=== PATIENT | male | born 1975 | race Caucasian/White ===

== ENCOUNTER 2019-10-26 19:05 | Emergency (ER) | payer BC, OTHER ==
[2019-10-26] MEDS ORDERED: Acetaminophen TAB* 325 MG PO ONE (20:21)
[2019-10-26 20:25] VITALS: BP 136/60
[2019-10-26 20:27] LABS: Influenza A Molecular POSITIVE (Negative)
--- NOTE | 2019-10-26 20:29 | UC ---
FLU HPI - HPI Summary HPI Summary: Patient presents to urgent care reporting 4 days of progressive body aches, congestion, nausea and vomiting, shortness of breath. Patient states he's been trying to drink fluids but decreased urine output due to dehydration. Patient has been taking [id number] Motrin and Tylenol. Last dose of Tylenol was this morning at noon. Patient states he just hurts and feels "terrible " last time he was here knee injury skiing tonight he has a shoulder sling patient took 3 days worth of Bactrim that he had left over. Patient does have a history of sepsis related to an infection in his knee. Patient does not have any red areas or concerning areas on his body he reports night. Patient's medications are sunken and the EMR record reviewed this visit patient's was diagnosed with influenza today. - History of Current Complaint Chief Complaint: UCGeneralIllness Stated Complaint: FLU LIKE SYMPTOMS Time Seen by Provider: 10/26/19 20:23 Hx Obtained From: Patient Severity Currently: Moderate Severity Initially: Severe Pain Intensity: 10 Pain Scale Used: 0-10 Numeric - Allergy/Home Medications Allergies/Adverse Reactions: Allergies Allergy/AdvReac Type Severity Reaction Status Date / Time Penicillins Allergy Anaphylatic Verified 10/26/19 20:49 Shock beesting Allergy Anaphylatic Uncoded 10/26/19 20:49 Shock Home Medications: Home Medications Ibuprofen TAB* [Advil TAB*] 800 mg PO Q6H PRN 07/16/17 [History Confirmed ] Acetaminophen [Tylenol Extra Strength] 1,000 mg PO Q6H 10/26/19 [History Confirmed 10/26/19] Sulfamethox/Trimethoprim DS* [Bactrim DS 800/160 TAB*] 1 tab PO BID 10/26/19 [ History Confirmed 10/26/19] PMH/Surg Hx/FS Hx/Imm Hx Previously Healthy: Yes - Surgical History Surgical History: None - Family History Known Family History: Positive: Non-Contributory Negative: Other - NO JOINT LAXITY - Social History Occupation: Employed Full-time Lives: With Family Alcohol Use: None Substance Use Type: None Smoking Status (MU): Never Smoked Tobacco - Immunization History Most Recent Influenza Vaccination: no Review of Systems All Other Systems Reviewed And Are Negative: Yes Constitutional: Positive: Fever, Chills, Fatigue Skin: Positive: Negative ENT: Positive: Sore Throat, Nasal Discharge, Sinus Congestion Respiratory: Positive: Shortness Of Breath, Cough Cardiovascular: Positive: Negative Gastrointestinal: Positive: Abdominal Pain, Vomiting, Nausea Genitourinary: Positive: Negative Physical Exam - Summary Physical Exam Summary: Vital Signs Reviewed: Yes A+Ox3, ill appearing Eyes: Conjunctiva Clear, SHIV. EOM intact and full ENT: Hearing grossly normal TM x 2 clear, turbinates inflammed and boggy, + PND , mmoist, uvula midline, no exudate, + diffuse erythema Neck: Positive: Supple Respiratory: Positive: No respiratory distress, No accessory muscle use + coarse cough + wheeze increased RR Cardiovascular: RRR +tachycardia, nl s1, s2 no m/r CBT <2 sec abd soft + BS + + RUQ TTP, no guarding, no rebound, no CVA Musculoskeletal Exam: KAY x 4 without difficulty Strength Intact, ROM Intact Neurological: Positive: Alert, + sensation throughout Psychological: Positive: Normal Response To examiner Skin: Positive: no rash, no ecchymosis, pallor Triage Information Reviewed: Yes Vital Signs: Initial Vital Signs Temp 103.5 F 10/26/19 20:21 Pulse 102 10/26/19 20:21 Resp 16 10/26/19 20:21 BP 136/60 10/26/19 20:21 Pulse Ox 91 10/26/19 20:21 Re-Evaluation - Re-Evaluation Second Eval Comment: Patient's color improved. Patient's S 92% following Xopenex. Patient' s urine shows 4+ ketones as well as some trace bilirubin. Chest x-ray bilateral infiltrates. Strong recommend patient with numerous primary for further evaluation treatment. Patient's who was present will drive him here. Spoke to Marlee Olson, nurse practictioner in the emergency department [facility] as were patient is coming for additional treatment. Flu Course/Dx - Course Course Of Treatment: Patient presents to urgent care was 3-4 days of progressive body aches, fatigue , fevers, cough, shortness of breath, abdominal pain, nausea. Patient states she's had decreased appetite little intake. Last antipyretic was at noon. On exam vital show an elevated blood pressure decreased oxygen saturations elevated heart rate. Patient's blood pressure is within normal limits patient patient is ill-appearing pale in color with increased respiratory rate. Patient also diffusely of tenderness to his abdomen. Patient informs was positive. We'll do a chest x-ray give Motrin and Tylenol as well as check a urine. We'll have [facility] is not significant improvement. - Differential Dx/Diagnosis Provider Diagnosis: Influenza, Hypoxia, Lung infiltrate Discharge ED - Sign-Out/Discharge Documenting (check all that apply): Patient Departure All imaging exams completed and their final reports reviewed: No - Discharge Plan Condition: Stable Disposition: HOME-RECOMMEND TO ED Patient Education Materials: Influenza (ED) Referrals: No Primary Care Phys,NOPCP [Primary Care Provider] - Additional Instructions: The doctor that evaluated you today thinks that you need additional testing that can be completed the emergency department. It is recommended that you go directly to emergency department for further evaluation. This evaluation may include blood work or imaging. This testing will be directed and decided by the provider that evaluate you at the emergency department. If pain becomes worse, you feel lightheaded, you have uncontrolled vomiting, or you have any other concerns while you are being driven to emergency department as recommended to pullover and contact 911. - Billing Disposition and Condition Condition: STABLE Disposition: Home-Recommend to ED
[2019-10-26] MEDS ORDERED: Ibuprofen TAB* 600 MG PO ONE (20:36)
[2019-10-26] MEDS ORDERED: Levalbuterol 1.25MG/0.5ML NEB INH ONE (20:37)
[2019-10-26] MEDS ORDERED: Levalbuterol 0.63MG/3ML NEB* UNIT OF USE INH ONE (20:49)
--- NOTE | 2019-10-27 08:02 | UC ---
- Progress Note Progress Note: Reviewe Dr. Pierre's reading of chest xray: bilateral infiltrates. He was sent to the ER for evaluation. Course/Dx - Diagnoses Provider Diagnoses: Influenza, Hypoxia, Lung infiltrate Discharge ED - Sign-Out/Discharge Documenting (check all that apply): Post-Discharge Follow Up All imaging exams completed and their final reports reviewed: Yes - Discharge Plan Condition: Stable Disposition: HOME-RECOMMEND TO ED Patient Education Materials: Influenza (ED) Referrals: No Primary Care Phys,NOPCP [Primary Care Provider] - Additional Instructions: The doctor that evaluated you today thinks that you need additional testing that can be completed the emergency department. It is recommended that you go directly to emergency department for further evaluation. This evaluation may include blood work or imaging. This testing will be directed and decided by the provider that evaluate you at the emergency department. If pain becomes worse, you feel lightheaded, you have uncontrolled vomiting, or you have any other concerns while you are being driven to emergency department as recommended to pullover and contact 911. - Billing Disposition and Condition Condition: STABLE Disposition: Home-Recommend to ED
== END 2019-10-26 21:20 | disposition home health service (06) ==
LOC: UCCORT 19:05
DX: J11.1 Influenza due to unidentified influenza virus with other respiratory manifestations (principal); R09.02 Hypoxemia; R91.8 Other nonspecific abnormal finding of lung field; Z88.0 Allergy status to penicillin; Z91.030 Bee allergy status
CPT/HCPCS: 71046; 81003; 99213; A9270-GY; G0463